=== PATIENT | female | born 2000 ===

== ENCOUNTER 2024-12-22 14:08 | Inpatient (IN) | payer BC, MEDICAID ==
[2024-12-22] MEDS ORDERED: HALOPERIDOL LACTATE 5 MG/ML 1 ML VIAL IM PRN (15:00)
[2024-12-22] MEDS ORDERED: LORazepam 2 MG/ML INJ IM PRN (15:00)
[2024-12-22] MEDS ORDERED: MAG HYDROX/AL HYDROX/SIMETH 355 ML BOTTLE PO PRN (15:00)
[2024-12-22] MEDS ORDERED: haloperidoL 5 MG TAB PO PRN (15:00)
[2024-12-22] MEDS ORDERED: IBUPROFEN 600 MG TAB PO PRN (15:00)
[2024-12-22] MEDS: cloNIDine HCL 0.1 MG TAB PO SCH (20:36)
[2024-12-23] MEDS: NICOTINE 14MG/24HR PATCH TRANSDERM SCH (08:28)
[2024-12-23] MEDS: cloNIDine HCL 0.1 MG TAB PO SCH ×2 (08:29→20:16)
[2024-12-23] MEDS: lamoTRIgine 100 MG TAB PO SCH (08:29)
[2024-12-23] MEDS: MAGNESIUM HYDROXIDE 2,400 MG/30 ML CUP PO PRN (08:29)
[2024-12-23] MEDS: NON FORMULARY DRUG (Desvenlafaxine [Desvenlafaxine Er] 50 MG Tab.Er.24h) PO SCH (09:32)
[2024-12-23] MEDS ORDERED: Desvenlafaxine [Desvenlafaxine Er] 50 MG Tab.Er.24h PO SCH (10:13)
[2024-12-23] MEDS: ACETAMINOPHEN TAB 325 MG TAB PO PRN (11:07)
[2024-12-23] MEDS: Desvenlafaxine [Desvenlafaxine Er] 50 MG Tab.Er.24h PO SCH (11:08)
[2024-12-23 11:43] LABS: ALT 26 U/L (4-34); AST 32 U/L (14-36); Alkaline Phosphatase 66 U/L (38-126); Bilirubin, Delta 0.2 mg/dL (0.0-0.2); Bilirubin,Unconjugated 0.9 mg/dL (0.0-1.1); Total Bilirubin 1.1 mg/dL (0.2-1.3)
--- NOTE | 2024-12-23 12:21 | P.HP ---
Psychiatric H&P - . H&P Date: 12/23/24 History & Physical: Allergies Allergy/AdvReac Type Severity Reaction Status Date / Time No Known Allergies Allergy Verified 12/22/24 21:04 Vital Signs Temp 97.8 F 12/22/24 20:48 Pulse 73 12/23/24 08:34 Resp 15 12/22/24 20:48 BP 129/79 12/23/24 08:34 Pulse Ox FiO2 Intake & Output 12/22/24 12/23/24 12/23/24 18:59 06:59 18:59 Weight 97.73 kg 96.247 kg Laboratory Last Values Total Bilirubin 1.1 mg/dL (0.2-1.3) 12/23/24 10:35 Conjugated Bilirubin 0.0 mg/dL (0.0-0.3) 12/23/24 10:35 Unconjugated Bilirubin 0.9 mg/dL (0.0-1.1) 12/23/24 10:35 Delta Bilirubin 0.2 mg/dL (0.0-0.2) 12/23/24 10:35 AST 32 U/L (14-36) 12/23/24 10:35 ALT 26 U/L (4-34) 12/23/24 10:35 Alkaline Phosphatase 66 U/L (38-126) 12/23/24 10:35 Total Protein 8.0 g/dL (6.3-8.2) 12/23/24 10:35 Albumin 5.0 g/dL (3.5-5.0) 12/23/24 10:35 12/23/24 11:59 IDENTIFYING DATA: Patient is a 24-year-old female, she is currently single she has no kids she lives with her siblings in a house, 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 Patient presented to ED via PD related to suicidal ideation with plan to overdose, patient petitioned by social work. Patient has a history of overdose on over the counter medications. Per clinical cert, patient told loan tire servicer to send her to collections because she is going to kill herself, and has history of prvious attempts. Per packet, patient has had an increase in financial and social stressors ongoing recently. PD were called and she told them that she did not want to live on this planet any longer. Denies any current attempt to PD. Denies homicidal ideatinos or plan, no auditory or visual hallucinations." Patient was seen today wandering the hallways agreeable to speak to video games storywriter. She initially was fairly pleasant and was rambling, minimizing her need to be in the hospital. She claims that she was having a "bad day". Claims that she called her vice squad police officer over the phone and stated that with her student loans that "send him to collections because I am just going to kill myself" and the airframe technical officer called the police to bring her into the hospital. She claims that she had tried to reach out to her therapist to get her in, claims that she does have a history of cutting and was doing "harm reduction" and only scratching her arm. Claims that the strip polisher came to her house brought her to the hospital. States that she was having a "really bad day" and was feeling overwhelmed with several different things including money and her time and having poor sleep. Claims that her sleep has been on and off due to her work schedule and also having a new job, appetite has been on and off. patient denies any current suicidal or homicidal ideations intent or plan. Claims that she has a history of chronic suicidal ideations at times. She had fairly poor insight into her need for hospitalization, was minimizing her actions prior to going to the hospital. At this time patient denies any auditory or visual hallucinations. Patient denies any flight of ideas racing thoughts and increased in goal directed behavior. Patient admits to using marijuana frequently every day, denies any other recreational drug use. PAST PSYCHIATRIC HISTORY: Patient has a history of bipolar type I, anxiety, PTS D, ADHD, autism. She claims that she is currently on Pristiq, Lamictal, Klonopin as needed and clonidine. Claims that she was last psychiatric hospitalized in 2022 was previously in a psychiatric unit in [place] and also in [place] in the past. She states that she follows up with a nurse practitioner therapist through [facility]. Claims that she tried to overdose to kill herself about 3 years ago. PMH: as per ER note ALLERGIES: as per EMR CHEMICAL DEPENDENCY HISTORY: as per HPI FAMILY PSYCHIATRIC/SUBSTANCE USE HISTORY: Denies SOCIAL HISTORY: Patient was born and raised in [place] and also [facility]. Claims that she completed her high school degree and also bachelor's degree in business management. States that she does not have any legal history. No kids he is single. Currently lives with her siblings in a house. 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 MENTAL STATUS EXAM: General Appearance: Patient appears to be mildly overweight, wearing glasses, several tattoos on her arms, stated age is alert, argumentative at times, minimizing. Patient appears to have fair hygiene and grooming. Behavior: Patient is seated without any agitated behavior. Minimizing, argumentative Speech: Patient's speech is fairly talkative, rambles Mood/Affect: Patient reports their mood is anxious and depressed, affect is congruent Suicidality/Homicidality: Patient denies having any homicidal ideation intent or plan. Denies any suicidal ideations intent or plan Perceptions: Patient denies any visual hallucinations and denies any auditory hallucinations Though content/process: Patient is rambling, minimizing her need for hospitalization and the situation. No delusions or paranoia Memory and concentration: AOX3, grossly intact for the purposes of this session. Can spell "WORLD" backwards Judgment and insight: Poor STRENGTHS/WEAKNESSES: strength is that patient is resilient. Weakness is that patient has poor judgment and is impulsive INTELLECT: Average IMPRESSIONS: Suicidal ideations Bipolar disorder type I History of PTSD history of ADHD Cannabis use disorder PLAN: -Patient is admitted under involuntary status to MHU for stabilization of psychiatric symptoms and safety. Patient has not signed adult voluntary form and has not signed medication consent and is placed in patient's chart. A second certification was completed and along with petition will be filed for court. -Medications : Continue with home dose of Pristiq 50 mg daily for mood/anxiety, Lamictal 200 mg daily for mood stabilization/depression, added lithium 300 mg nightly for mood stabilization/suicidal thoughts, melatonin 10 mg nightly as needed for insomnia. -Ativan and Haldol PRN for agitation/aggression -Patient was counselled on substance abuse and desired to cut back on use. Patient states they do not want rehab and wish to cut back subtance use on their own -Patient was informed of the risks, benefits and side effects of the medications . Patient did not signed med consent form and was placed in chart. Patient was offered medication information and declined it -Internal Medicine consult to perform medical evaluation and physical. -NRT -not needed as patient does not smoke -SW on board for discharge planning. Encourage patient to participate in groups to work on coping skills. Will await deferral and court date. 12/23/24 12:12 12/23/24 12:21
[2024-12-23] MEDS: LITHIUM CARBONATE 300 MG CAP PO SCH (20:15)
--- NOTE | 2024-12-24 05:43 | P.CONS ---
History of Present Illness - Reason for Consult Consult date: 12/24/24 - History of Present Illness The patient is a 23-year-old female with a PMH of marijuana abuse who was transferred from [facility] with the patient had presented with complaints of depression and suicidal ideation. Patient was seen in mental health unit while accompanied by an MHU RN. Patient notes that she has been suffering with thoughts of depression for many many years. She denies any physical complaints at the time of interview. Denied experiencing chest discomfort, shortness of breath, fever, chills, cough, nausea, vomiting, abdominal pain, diarrhea. She does report recreational marijuana use but denies tobacco or additional illicit substance or alcohol use. Review of systems: Pertinent positives and negatives as discussed in HPI, a complete review of systems was performed and all other systems are negative. Physical examination: General: non toxic, no distress, appears at stated age, obese Derm: no unusual rashes/lesions, no unusual ecchymoses, warm, dry Head: atraumatic, normocephalic, symmetric Eyes: EOMI, no lid lag, anicteric sclera ENT: Nose and ears atraumatic, no thrush, no pharyngeal erythema Neck: trachea midline, supple Mouth: no lip lesion, mucus membranes moist Cardiovascular: S1S2 reg, no murmur, no edema Lungs: CTA bilateral, no rhonchi, no rales , no accessory muscle use Abdominal: soft, nontender to palpation, no guarding Ext: no gross muscle atrophy, no contractures, Neuro: No gross focal neuro deficits noted Psych: Alert, oriented, appropriate affect Assessment: Marijuana abuse Depression and suicidal ideation Imaging: None Data Review: Reviewed with A1c 4.9, HDL 46, LDL 104 Plan: Advised on importance of cessation of marijuana use Defer management of depression and suicidal ideation to the primary psychiatry service Thank you for allowing us to participate in the care of this patient. We will follow peripherally. Do not hesitate to contact us with questions. Someone can be reached from the [facility] hospitalist group at all hours of the day at [phone]. Past Medical History Past Medical History: Asthma Additional Past Medical History / Comment(s): Ovarian cyst 09/2024 History of Any Multi-Drug Resistant Organisms: None Reported Additional Past Surgical History / Comment(s): [place] teeth Past Anesthesia/Blood Transfusion Reactions: No Reported Reaction Past Psychological History: Depression Smoking Status: Never smoker Past Alcohol Use History: Abuse, Daily Additional Past Alcohol Use History / Comment(s): Pt states "I used to be an alcoholic. I quit 06/2024" Past Drug Use History: Marijuana Medications and Allergies Home Medications Medication Instructions Recorded Confirmed Type Desvenlafaxine [Desvenlafaxine ER] 75 mg PO DAILY 12/22/24 12/22/24 History cloNIDine HCL [Catapres] 0.05 mg PO QAM 12/22/24 12/22/24 History cloNIDine HCL [Catapres] 0.1 mg PO W/SUPPER 12/22/24 12/22/24 History lamoTRIgine 200 mg PO DAILY 12/22/24 12/22/24 History Allergies Allergy/AdvReac Type Severity Reaction Status Date / Time No Known Allergies Allergy Verified 12/22/24 21:04 Physical Exam Vitals: Vital Signs Temp Pulse Resp BP Pulse Ox 12/23/24 20:14 96.4 F L 71 14 138/81 98 12/23/24 08:34 73 129/79
[2024-12-24 06:22] LABS: Chol/HDL Ratio 3.64 Ratio
--- NOTE | 2024-12-24 12:50 | P.PN ---
Progress Note - Text Progress Note Date: 12/24/24 Interval history: Patient was seen wandering the hallways and was directable and agreeable to s peak with junior underwriter. Patient was also seen earlier speaking with somebody over the phone. Patient requested to have a female nurse present during conversation today. She claims that she wanted a spanish tutor present as she felt that the conversation with junior underwriter did not go well yesterday. Patient claims that she is doing fine, she was stating that she feels that she does not need or want the lithium. Believes that she was not evaluated by a psychiatrist to begin with at [facility] and claims that she informed her that she did not want inpatient. She continues to state that she was just having a "bad day". She refused the lithium last night, states that she has been dealing with suicidal thoughts "my whole life" and states that "I have had so much progress I do not need anything else". She was fairly focused on discharge, we spoke more about the legal situation involving the courts and waiting for the deferral. Claims that she wants to get a mixer operator from her workplace to come and do the deferral. At this time patient denies any suicidal or homicidal ideations intent or plan. Denies any Auditory or visual hallucinations. Mental status exam: General Appearance: Patient appears to be stated age is alert, directable, and attempts to be cooperative. Behavior: No agitated behavior. Patient is calm and directable, somewhat argumentative, focused on discharge Speech: Patient's speech is fluent and nonpressured. Rapid at times Mood/Affect: Mood is improving mildly, affect is congruent and constricted. Suicidality/Homicidality: Patient denies having any suicidal or homicidal ideation intent or plan. Perceptions: Patient denies any auditory or visual hallucinations. Though content/process: There is no evidence of any delusional thought content and thought process is linear and goal-directed. Focused on discharge, minimizing Memory and concentration: AOX3, grossly intact for the purposes of this session Judgment and insight: improving mildly Assessment/Plan: Continue with current diagnosis. Patient continues to meet criteria for inpatient psychiatric admission for symptom stabilization and safety. Patient will be maintained on current psychotropic medication regimen. Monitor for medication compliance and for any psychotropic medication side effects. Will continue to monitor ongoing response to treatment. Encouraged participation in milieu. Currently awaiting deferral and hearing date.
[2024-12-24] MEDS: LORazepam 1 MG TAB PO PRN (23:08)
--- NOTE | 2024-12-25 11:32 | P.PN ---
Progress Note - Text Progress Note Date: 12/25/24 Interval history: Tennis Racket Repairer saw patient for dissipating in activities group today, sba underwriter approached patient to be interviewed today. She walked right past the sba underwriter and states that "you are not my doctor I am with Dr. Antonio". Tennis Racket Repairer attempted several times to explain that her wristband is incorrect and that she is assigned to myself however patient refused to acknowledge sba underwriter further and continue to deny that sba underwriter is her doctor. She refused to speak to sba underwriter today. Did not answer any other questions. She continues to be fairly argumentative. Mental status exam: General Appearance: Patient appears to be mildly overweight, wearing glasses, some tattoos, stated age is alert, argumentative. Behavior: No agitated behavior. Patient is somewhat argumentative Speech: Patient's speech is fluent and nonpressured. Rapid at times, demanding Mood/Affect: Unable to assess Suicidality/Homicidality: Unable to assess Perceptions: Unable to assess Though content/process: Fairly concrete, claims that she is not assigned to sba underwriter as her doctor at this time. Early argumentative Memory and concentration: Unable to assess Judgment and insight: Poor/impulsive Assessment/Plan: Continue with current diagnosis. Patient continues to meet criteria for inpatient psychiatric admission for symptom stabilization and safety. Patient will be maintained on current psychotropic medication regimen. Monitor for medication compliance and for any psychotropic medication side effects. Will continue to monitor ongoing response to treatment. Encouraged participation in milieu. Currently awaiting deferral and hearing date. patient continues to refuse [place] at this time
[2024-12-25] MEDS: MELATONIN 5 MG TABLET PO PRN (23:38)
--- NOTE | 2024-12-26 11:52 | P.PN ---
Progress Note - Text Progress Note Date: 12/26/24 Interval history: Supervisor [employer] saw patient taking part in activities group today, was agreeable to speak to typewriter repairer in the office. She again requested a female ball point splitter to be present which was accommodated. Patient continues to minimize her need for hospitalization, states that "I only had 1 bad day" and continues to state that she has made improvements with herself. She claims that she did take the lithium last night however states that it caused her to lose sleep last night. She states that she tried to take the melatonin and was able to rest afterwards. She was agreeable to have ordered the trazodone at nighttime as needed. She was fairly argumentative about the lithium however was agreeable to take it twice a day, typewriter repairer explained that this is a low dose given her diagnosis and her condition. She has been going to groups interacting with others on the unit. Claims that she has been eating well, showering. Minimizing depression anxiety, focused on discharge. Continues to be fairly argumentative with typewriter repairer. Denies any suicidal homicidal ideations intent or plan denies any auditory or visual hallucinations. Mental status exam: General Appearance: Patient appears to be mildly overweight, wearing glasses, some tattoos, stated age is alert Behavior: No agitated behavior. Patient is somewhat argumentative Speech: Patient's speech is fluent and nonpressured. Rapid at times, demanding, argumentative Mood/Affect: Claims her mood is fair, affect is constricted Suicidality/Homicidality: Denies Perceptions: Denies Though content/process: Fairly concrete, Less argumentative today. Not endorsing paranoia or delusions. Memory and concentration: Alert and oriented x 3 Judgment and insight: Poor/impulsive, improving mildly Assessment/Plan: Continue with current diagnosis. Patient continues to meet criteria for inpatient psychiatric admission for symptom stabilization and safety. Patient will be maintained on current psychotropic medication regimen, with the exception of changing dosing of lithium to 150 mg twice daily for mood stabilization/suicidal thoughts and discontinuing melatonin replace with trazodone 100 mg nightly as needed for insomnia. Monitor for medication compliance and for any psychotropic medication side effects. Will continue to monitor ongoing response to treatment. Encouraged participation in milieu. Currently awaiting deferral which is set for , hearing is set for Wednesday with [facility] court. patient is now compliant with medications.
[2024-12-26] MEDS: LITHIUM CARBONATE 150 MG CAP PO SCH (12:20)
[2024-12-26] MEDS: traZODone HCL 100 MG TAB PO PRN (21:00)
[2024-12-26 22:08] LABS: Basophils # (A) 0.1 k/uL (0-0.2); Basophils % (A) 1 %; Eosinophils # (A) 0.1 k/uL (0-0.7); Eosinophils % (A) 1 %; HCT 43.5 % (34.0-46.0); HGB 13.7 gm/dL (11.4-16.0); Lymphocytes # (A) 2.5 k/uL (1.0-4.8); Lymphocytes % (A) 24 %; MCH 28.3 pg (25.0-35.0); MCHC 31.6 g/dL (31.0-37.0); MCV 89.7 fL (80.0-100.0); Mean Platelet Volume 8.5; Monocytes # (A) 0.7 k/uL (0-1.0); Monocytes % (A) 7 %; Neutrophils # (A) 6.7 k/uL (1.3-7.7); Neutrophils % (A) 65 %; Platelet Count 254 k/uL (150-450); RBC 4.85 m/uL (3.80-5.40); RDW 12.3 % (11.5-15.5); WBC 10.3 k/uL (3.8-10.6)
[2024-12-26 22:17] LABS: INR 1.1 (<1.2); Partial Thromboplastin Time 27.7 sec (22.0-30.0); Prothrombin Time 11.6 sec (10.0-12.5)
--- NOTE | 2024-12-27 11:32 | P.PN ---
Progress Note - Text Progress Note Date: 12/27/24 Interval history: Treasury Consultant saw patient taking part in activities group today. Patient was agreeable to speak to real estate underwriter in the office. Patient claims that she is doing a bit better today, appears to be less argumentative less labile. She is also less focused on discharge. Claims that one of her coworkers will be able to do the deferral with her on the unit instead of the court appointed respiratory therapy technician. Claims that her mood and anxiety have been improving, denies any significant issues at this t nancy. States that she took the 100 mg dose of trazodone last night and felt that it was too strong, want to take the 50 mg dose instead. Claims that she has been eating well, showering. Denies any suicidal homicidal ideations intent or plan denies any auditory or visual hallucinations. Mental status exam: General Appearance: Patient appears to be mildly overweight, wearing glasses, some tattoos, stated age is alert Behavior: No agitated behavior. Less argumentative today Speech: Patient's speech is fluent and nonpressured. less demanding, argumentative Mood/Affect: Claims her mood is fair, affect is constricted, improving mildly Suicidality/Homicidality: Denies Perceptions: Denies Though content/process: Fairly concrete, Less argumentative today. Not endorsing paranoia or delusions. Memory and concentration: Alert and oriented x 3 Judgment and insight: Poor/impulsive, improving mildly Assessment/Plan: Continue with current diagnosis. Patient continues to meet criteria for inpatient psychiatric admission for symptom stabilization and safety. Patient will be maintained on current psychotropic medication regimen, with the exception of decreasing trazodone 50 mg nightly as needed for insomnia. Monitor for medication compliance and for any psychotropic medication side effects. Will continue to monitor ongoing response to treatment. Encouraged participation in milieu. Currently awaiting deferral which is set for , hearing is set for Wednesday with [facility] court. patient is now compliant with medications.
[2024-12-27] MEDS: traZODone HCL 50 MG TAB PO PRN (20:43)
[2024-12-27 21:30] LABS: Appearance,Urine Clear (Clear); Bilirubin,Urine Negative (Negative); Blood,Urine Negative (Negative); Color,Urine Colorless; Glucose,Urine (UA) Negative (Negative); Ketones,Urine Negative (Negative); Leukocyte Esterase,Urine Negative (Negative); Nitrite,Urine Negative (Negative); Protein,Urine Negative (Negative); Specific Gravity,Urine 1.001 (1.001-1.035); Urobilinogen,Urine <2.0 mg/dL (<2.0)
[2024-12-27] MEDS ORDERED: polyethylene glycoL 3350 17 GM POWD.PACK PO SCH (23:00)
[2024-12-27] MEDS: DOCUSATE 100 MG CAP PO PRN (23:09)
[2024-12-28] MEDS: polyethylene glycoL 3350 17 GM POWD.PACK PO SCH (08:37)
[2024-12-28 10:30] LABS: African American GFR (CKD) >90 (>60 ml/min/1.73 sqM); Anion Gap 9 mmol/L; Blood Urea Nitrogen 9 mg/dL (7-17); Calcium 9.6 mg/dL (8.4-10.2); Carbon Dioxide 26 mmol/L (22-30); Chloride 103 mmol/L (98-107); Glucose 80 mg/dL (74-99); Non-African American GFR(CKD) >90 (>60 ml/min/1.73 sqM); Potassium 4.3 mmol/L (3.5-5.1); Sodium 138 mmol/L (137-145)
--- NOTE | 2024-12-28 12:57 | P.PN ---
Progress Note - Text Progress Note Date: 12/28/24 Interval history: Dual Rate Dealer saw patient today in the hallways, agreeable to speak to publicity writer in the office today. Claims that she is doing better today, claims that she ended up signing the deferral with the canine enforcement officer just a few minutes ago. States that she feels that she is getting used to taking the lithium, claims that she is still finding a bit harder to sleep last night. Claims that she would prefer the 75 mg dose of the trazodone instead of the 100 100 mg dose. Claims that she is trying to go to groups participating is more future oriented, not argumentative today more cooperative. Claims that she has been eating well, showering. Denies any suicidal homicidal ideations intent or plan denies any auditory or visual hallucinations. Mental status exam: General Appearance: Patient appears to be mildly overweight, wearing glasses, some tattoos, stated age is alert Behavior: No agitated behavior. More cooperative today and pleasant Speech: Patient's speech is fluent and nonpressured. Not argumentative Mood/Affect: Claims her mood is fair, affect is constricted, improving mildly Suicidality/Homicidality: Denies Perceptions: Denies Though content/process: Not endorsing paranoia or delusions. Logical goal oriented and future oriented Memory and concentration: Alert and oriented x 3 Judgment and insight: improving mildly Assessment/Plan: Continue with current diagnosis. Patient continues to meet criteria for inpatient psychiatric admission for symptom stabilization and safety. Patient will be maintained on current psychotropic medication regimen, with the exception of increasing trazodone 75 mg nightlyfor insomnia. Monitor for medication compliance and for any psychotropic medication side effects. Will continue to monitor ongoing response to treatment. Encouraged participation in milieu. Patient completed the deferral with canine enforcement officer today, agreeing to treatm ent, likely discharge tomorrow if patient is improving.
[2024-12-28] MEDS: SENNOSIDES 8.6 MG TAB PO PRN (14:49)
[2024-12-28] MEDS: traZODone HCL 50 MG TAB PO SCH (20:38)
[2024-12-28 21:59] VITALS: RESP 12
[2024-12-29 08:15] VITALS: BP 129/83; PULSE 112; TEMP 97.4
--- NOTE | 2024-12-29 11:24 | P.DS ---
Providers Date of admission: 12/22/24 19:59 Expected date of discharge: 12/29/24 Attending physician: Jeet Posada MD Consults: 12/22/24 15:00 Consult Physician Routine Consulting Provider: Glenn Hernandez Consult Reason/Comments: History and Physical, New Admission Do you want consulting provider notified?: Yes Primary care physician: Stated None - Discharge Diagnosis(es) (1) Suicidal ideations Current Visit: Yes Status: Acute Priority: High (2) Bipolar disorder current episode depressed Current Visit: Yes Status: Acute Priority: High (3) History of ADHD Current Visit: Yes Status: Acute Priority: Medium (4) History of posttraumatic stress disorder (PTSD) Current Visit: Yes Status: Acute Priority: Medium (5) Cannabis use disorder Current Visit: Yes Status: Acute Priority: Medium Hospital Course: Admission HPI: Admission note was completed by short story writer "Patient is a 24-year-old female, she is currently single she has no kids she lives with her siblings in a house, 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 Patient presented to the hospital yesterday as a transfer from [facility] involuntarily, patient was seen by EPS and according to note "Patient transfer packet recieved by [facility] from [facility]. Patient presented to ED via PD related to suicidal ideation with plan to overdose, patient petitioned by social work. Patient has a history of overdose on over the counter medications. Per clinical cert, patient told loan coil cutter to send her to collections because she is going to kill herself, and has history of prvious attempts. Per packet, patient has had an increase in financial and social stressors ongoing recently. PD were called and she told them that she did not want to live on this planet any longer. Denies any current attempt to PD. Denies homicidal ideatinos or plan, no auditory or visual hallucinations." Patient was seen today wandering the hallways agreeable to speak to short story writer. She initially was fairly pleasant and was rambling, minimizing her need to be in the hospital. She claims that she was having a "bad day". Claims that she called her commercial loan analyst over the phone and stated that with her student loans that "send him to collections because I am just going to kill myself" and the loan processor called the police to bring her into the hospital. She claims that she had tried to reach out to her therapist to get her in, claims that she does have a history of cutting and was doing "harm reduction" and only scratching her arm. Claims that the dental front office assistant came to her house brought her to the hospital. States that she was having a "really bad day" and was feeling overwhelmed with several different things including money and her time and having poor sleep. Claims that her sleep has been on and off due to her work schedule and also having a new job, appetite has been on and off. patient denies any current suicidal or homicidal ideations intent or plan. Claims that she has a history of chronic suicidal ideations at times. She had fairly poor insight into her need for hospitalization, was minimizing her actions prior to going to the hospital. At this time patient denies any auditory or visual hallucinations. Patient denies any flight of ideas racing thoughts and increased in goal directed behavior. Patient admits to using marijuana frequently every day, denies any other recreational drug use." Hospital course: Upon admission to the unit patient was admitted involuntarily on a petition and certificate and a second certificate was completed and faxed to the courts. Patient ended up signing a deferral with the city attorney and agreeing to treatment. Patient was initially argumentative and resistant to treatment however with time and treatment patient got along well with other patients on the unit and followed unit protocol. Patient was compliant with the medications and denied any side effects throughout hospital course. Patient was started on her home dose of Pristiq 50 mg daily for mood/anxiety, Lamictal 200 mg daily for mood stabilization/depression, melatonin 10 mg nightly for sleep, lithium 150 mg twice daily for mood stabilization/suicidal thoughts, trazodone 75 mg nightly for mood/insomnia, continued with home dose of Catapres. Patient spoke of her stressors and engaged in therapy both group/activity therapy. Patient was also seen by medical team for history and physical exam. Throughout the course of the hospitalization patient gradually improved with regards to mood, anxiety, suicidal thoughts, sleep and became more future oriented with improved insight and judgment. On the day of discharge patient denied any suicidal or homicidal ideations intent or plan denied any auditory or visual hallucinations. Patient endorsed wanting to live for their health and future. The patient denied any access to guns or weapons. Patient denied any paranoia and did not endorse any delusions. Patient does have a significant history of substance abuse and was counseled on abstaining from all substances including alcohol and marijuana. Patient elected to do outpatient substance use treatment program through their outpatient provider. Patient was also counseled on the medications and need for regular compliance and was encouraged to follow-up with their outpatient appointment for mental health and also for primary care. Prior to discharge a family meeting will be arranged by social welfare research worker to answer any questions and e nsure safety upon discharge incuding making sure that guns/weapons are either removed from the home or locked away. Mental status exam: General Appearance: Patient appears to be mildly overweight, several tattoos, stated age is alert, pleasant, and cooperative. Patient is in no acute distress and has improved hygiene and grooming Behavior: Patient is calmly seated without any agitated behavior. Speech: Patient's speech is fluent and nonpressured. Mood/Affect: Patient reports their mood is "good", affect is congruent and euthymic. Suicidality/Homicidality: Patient denies having any suicidal or homicidal ideation intent or plan. Perceptions: Patient denies any auditory or visual hallucinations. Though content/process: There is no evidence of any delusional thought content and thought process is linear and goal-directed. More future oriented Memory and concentration: AOX3, grossly intact for the purposes of this session. Can spell "WORLD" backwards correctly. Judgment and insight: improved with guarded prognosis Impression: Suicidal ideations Bipolar disorder current episode depressed History of PTSD History of ADHD Cannabis use disorder Plan: -Continue with discharge today as patient has improved and stabilized psychiatrically and is not currently an imminent threat to themself and/or others. Patient will remain at chronically elevated risk for harm to self and/or others due to their impulsivity and history of suicidal thoughts. -Continue medications: Pristiq 50 mg daily for mood/anxiety, Lamictal 200 mg daily for mood stabilization/depression, melatonin 10 mg nightly for sleep, lithium 150 mg twice daily for mood stabilization/suicidal thoughts, trazodone 75 mg nightly for mood/insomnia, can continue with home dose of Catapres. -Patient was counseled on the need for medication compliance and appropriate follow-up at mental health and also primary care for medical issues. Patient verbalized understanding and agreed. -Social work to help coordinate patients discharge today, patient claims that she has no access to guns or weapons at the house. also to ensure safe home environment that guns/weapons are either removed from the home or locked away. Social work also to arrange for patients follow up appointments with [facility] for psychiatric care along with follow up with primary care provider. -Patient counseled on abstaining from recreational drugs and marijuana and alcohol. Was informed/educated on the adverse effects on their physical and mental health. Patient verbally agreed and understood. -Patient was instructed to return to the hospital or seek immediate medical care if their psychiatric or medical symptoms do worsen or reoccur. Allergies Allergy/AdvReac Type Severity Reaction Status Date / Time No Known Allergies Allergy Verified 12/22/24 21:04 Laboratory Results WBC 10.3 k/uL (3.8-10.6) 12/26/24 21:44 RBC 4.85 m/uL (3.80-5.40) 12/26/24 21:44 Hgb 13.7 gm/dL (11.4-16.0) 12/26/24 21:44 Hct 43.5 % (34.0-46.0) 12/26/24 21:44 MCV 89.7 fL (80.0-100.0) 12/26/24 21:44 MCH 28.3 pg (25.0-35.0) 12/26/24 21:44 MCHC 31.6 g/dL (31.0-37.0) 12/26/24 21:44 RDW 12.3 % (11.5-15.5) 12/26/24 21:44 Plt Count 254 k/uL (150-450) 12/26/24 21:44 MPV 8.5 12/26/24 21:44 Neutrophils % 65 % 12/26/24 21:44 Lymphocytes % 24 % 12/26/24 21:44 Monocytes % 7 % 12/26/24 21:44 Eosinophils % 1 % 12/26/24 21:44 Basophils % 1 % 12/26/24 21:44 Neutrophils # 6.7 k/uL (1.3-7.7) 12/26/24 21:44 Lymphocytes # 2.5 k/uL (1.0-4.8) 12/26/24 21:44 Monocytes # 0.7 k/uL (0-1.0) 12/26/24 21:44 Eosinophils # 0.1 k/uL (0-0.7) 12/26/24 21:44 Basophils # 0.1 k/uL (0-0.2) 12/26/24 21:44 PT 11.6 sec (10.0-12.5) 12/26/24 21:44 INR 1.1 (<1.2) 12/26/24 21:44 APTT 27.7 sec (22.0-30.0) 12/26/24 21:44 Sodium 138 mmol/L (137-145) 12/28/24 09:40 Potassium 4.3 mmol/L (3.5-5.1) 12/28/24 09:40 Chloride 103 mmol/L (98-107) 12/28/24 09:40 Carbon Dioxide 26 mmol/L (22-30) 12/28/24 09:40 Anion Gap 9 mmol/L 12/28/24 09:40 BUN 9 mg/dL (7-17) 12/28/24 09:40 Creatinine 0.73 mg/dL (0.52-1.04) 12/28/24 09:40 Est GFR (CKD-EPI)AfAm >90 (>60 ml/min/1.73 sqM) 12/28/24 09:40 Est GFR (CKD-EPI)NonAf >90 (>60 ml/min/1.73 sqM) 12/28/24 09:40 Glucose 80 mg/dL (74-99) 12/28/24 09:[address] Glu mg/dL 94 mg/dL 12/23/24 10:35 Hemoglobin A1c 4.9 % (<=6.0) 12/23/24 10:35 Calcium 9.6 mg/dL (8.4-10.2) 12/28/24 09:40 Iron 46 UG/DL (50-170) L 12/26/24 21:44 Ferritin 181.0 ng/mL (10.0-291.0) 12/26/24 21:44 Total Bilirubin 1.1 mg/dL (0.2-1.3) 12/23/24 10:35 Conjugated Bilirubin 0.0 mg/dL (0.0-0.3) 12/23/24 10:35 Unconjugated Bilirubin 0.9 mg/dL (0.0-1.1) 12/23/24 10:35 Delta Bilirubin 0.2 mg/dL (0.0-0.2) 12/23/24 10:35 AST 32 U/L (14-36) 12/23/24 10:35 ALT 26 U/L (4-34) 12/23/24 10:35 Alkaline Phosphatase 66 U/L (38-126) 12/23/24 10:35 Total Protein 8.0 g/dL (6.3-8.2) 12/23/24 10:35 Albumin 5.0 g/dL (3.5-5.0) 12/23/24 10:35 Triglycerides 96.50 mg/dL (0.00-149.00) 12/23/24 10:35 Cholesterol 170.00 mg/dL (0.00-200.00) 12/23/24 10:35 LDL Cholesterol, Calc 104.0 mg/dL (0.0-131.0) 12/23/24 10:35 VLDL Cholesterol, Calc 19.30 mg/dL (5.00-40.00) 12/23/24 10:35 HDL Cholesterol 46.70 mg/dL (40.00-60.00) 12/23/24 10:35 Cholesterol/HDL Ratio 3.64 Ratio 12/23/24 10:35 TSH 1.250 mIU/L (0.465-4.680) 12/23/24 10:35 Urine Color Colorless 12/27/24 21:18 Urine Appearance Clear (Clear) 12/27/24 21:18 Urine pH 6.0 (5.0-8.0) 12/27/24 21:18 Ur Specific [place] 1.001 (1.001-1.035) 12/27/24 21:18 Urine Protein Negative (Negative) 12/27/24 21:18 Urine Glucose (UA) Negative (Negative) 12/27/24 21: Urine Ketones Negative (Negative) 12/27/24 21:18 Urine Blood Negative (Negative) 12/27/24 21:18 Urine Nitrite Negative (Negative) 12/27/24 21:18 Urine Bilirubin Negative (Negative) 12/27/24 21:18 Urine Urobilinogen <2.0 mg/dL (<2.0) 12/27/24 21:18 Ur Leukocyte Esterase Negative (Negative) 12/27/24 21:18 Vital Signs Temp 97.4 F L 12/29/24 08:14 Pulse 112 H 12/29/24 08:14 Resp 12 12/28/24 20:38 BP 129/83 12/29/24 08:14 Pulse Ox 95 12/29/24 08:14 FiO2 Patient Condition at Discharge: Stable Plan - Discharge Summary Discharge Rx Participant: Yes New Discharge Prescriptions: New Docusate [Colace] 100 mg PO DAILY PRN cap PRN Reason: Constipation traZODone HCL [Desyrel] 75 mg PO HS #0 tab [place] Carbonate 150 mg PO BID 30 Days #60 cap polyethylene glycoL 3350 [Miralax] 17 gm PO DAILY packet Sennosides [Senokot] 8.6 mg PO DAILY PRN tab PRN Reason: Constipation Continue lamoTRIgine 200 mg PO DAILY cloNIDine HCL [Catapres] 0.05 mg PO QAM cloNIDine HCL [Catapres] 0.1 mg PO W/SUPPER Desvenlafaxine [Desvenlafaxine ER] 75 mg PO DAILY Discharge Medication List Desvenlafaxine [Desvenlafaxine ER] 75 mg PO DAILY 12/22/24 [History] cloNIDine HCL [Catapres] 0.05 mg PO QAM 12/22/24 [History] cloNIDine HCL [Catapres] 0.1 mg PO W/SUPPER 12/22/24 [History] lamoTRIgine 200 mg PO DAILY 12/22/24 [History] Docusate [Colace] 100 mg PO DAILY PRN cap 12/29/24 [Rx] [place] Carbonate 150 mg PO BID 30 Days #60 cap 12/29/24 [Rx] Sennosides [Senokot] 8.6 mg PO DAILY PRN tab 12/29/24 [Rx] polyethylene glycoL 3350 [Miralax] 17 gm PO DAILY packet 12/29/24 [Rx] traZODone HCL [Desyrel] 75 mg PO HS #0 tab 12/29/24 [Rx] Follow up Appointment(s)/Referral(s): Counseling, [facility] [Other] - 01/18/25 8:00 am (01/18 @ 08:00 earliest avaiable pt can call to check possible cancellation) [facility] [Other] - 01/02/25 6:00 pm (01/02 @ 18:00) [facility] [Other] - 1 Week Patient Instructions/Handouts: Depression (DC), Anxiety (GEN) Activity/Diet/Wound Care/Special Instructions: [facility] Discharge Info Avoid the use of street drugs and alcohol. Take all medications as prescribed. When you are in need of refills on your medications, please contact your outpatient medical provider and/or outpatient psychiatrist. Please go to your scheduled outpatient appointments for aftercare treatment. If symptoms return or become worse, call the crisis line at or and/or visit the nearest emergency room for assistance. National Suicide and Crisis Lifeline - call or text 292 Discharge Disposition: HOME SELF-CARE
== END 2024-12-29 12:38 | disposition home or self-care (01) | DRG 885 ==
LOC: 3MHU 19:59
PROVIDERS: ADMIT Psychiatry & Neurology Psychiatry; ATTEND Psychiatry & Neurology Psychiatry
DX: F31.30 Bipolar disorder, current episode depressed, mild or moderate severity, unspecified (principal); R45.851 Suicidal ideations; F12.10 Cannabis abuse, uncomplicated; J45.909 Unspecified asthma, uncomplicated; F90.9 Attention-deficit hyperactivity disorder, unspecified type; F43.10 Post-traumatic stress disorder, unspecified; F41.9 Anxiety disorder, unspecified; F84.0 Autistic disorder; G47.00 Insomnia, unspecified; Z79.899 Other long term (current) drug therapy; Z91.52 Personal history of nonsuicidal self-harm
CPT/HCPCS: 80048; 80061; 80076; 80178; 81003; 82728; 83036; 83540; 84443; 85025; 85610; 85730